=== PATIENT | male | born 1950 | race Caucasian/White ===

== ENCOUNTER 2019-05-10 18:55 | Emergency (ER) | payer OTHER, MEDICARE ==
[~2019-05-10] VITALS: Ht 180.3 cm; Wt 65.8 kg
[2019-05-10 20:08] LABS: BASOPHILS ABSOLUTE AUTO 0.05 K/mm3 (0.00-0.23); BASOPHILS PERCENT AUTO 0 % (0-2); EOSINOPHILS PERCENT AUTO 0 % (0-6); Hematocrit 50.1 % (37.0-53.0); Hemoglobin 17.5 g/dL (13.5-17.5); IMMATURE GRAN ABSOLUTE AUTO 0.04 K/mm3 (0.00-0.10); IMMATURE GRAN PERCENT AUTO 0 % (0-1); LYMPHOCYTES ABSOLUTE AUTO 1.73 K/mm3 (0.84-5.20); LYMPHOCYTES PERCENT AUTO 13 % (21-46); MONOCYTES ABSOLUTE AUTO 1.35 K/mm3 (0.16-1.47); MONOCYTES PERCENT AUTO 10 % (4-13); Mean Corpuscular HGB 33.8 pg (26.0-34.0); Mean Corpuscular HGB Conc 34.9 g/dL (31.5-36.5); Mean Corpuscular Volume 97 fL (80-100); Mean Platelet Volume 10.6 fL (9.1-12.4); NEUTROPHILS PERCENT AUTO 76 % (41-73); Platelet Count 229 K/mm3 (150-400); RDW Coefficient Variation 12.4 % (11.7-14.2); RDW Standard Deviation 44.6 fL (35.1-46.3); Red Blood Cell Count 5.18 M/mm3 (4.30-5.90); White Blood Cell Count 13.07 K/mm3 (4.00-11.30)
[2019-05-10] MEDS ORDERED: Metformin HCl750 MG PO (20:09)
[2019-05-10] MEDS ORDERED: CARV3.125 PO (20:10)
[2019-05-10] MEDS ORDERED: [UNRECOGNIZED DRUG - OTHER] PO (20:11)
[2019-05-10] MEDS ORDERED: METO25ER PO (20:12)
[2019-05-10] MEDS ORDERED: LORA.5 PO ×2 (20:12→21:38)
[2019-05-10] MEDS ORDERED: ATOR40TA PO (20:13)
[2019-05-10] MEDS ORDERED: GABA300 PO (20:13)
[2019-05-10 20:23] LABS: Alanine Aminotransfer (ALT/SGP 17 U/L (12-78); Albumin, Blood 3.7 g/dL (3.4-5.0); Albumin/Globulin Ratio 0.9 (0.8-1.8); Alk Phos 90 U/L (50-136); Anion Gap 9 mmol/L (6-16); Aspartate Aminotrans (AST/SGOT 14 U/L (12-37); Bilirubin, Total 0.8 mg/dL (0.1-1.0); Blood Urea Nitrogen 22 mg/dL (8-24); CO2, Blood 26 mmol/L (21-32); Calcium, Blood 9.2 mg/dL (8.5-10.1); Chloride, Blood 107 mmol/L (98-108); Globulin, Blood 3.9 g/dL (2.2-4.0); Glomerular Filtration Rate >60 (60-); Glucose, Blood 229 mg/dL (70-99); Potassium, Blood 4.1 mmol/L (3.5-5.5); Sodium, Blood 142 mmol/L (136-145); Total Protein, Blood 7.6 g/dL (6.4-8.2)
[2019-05-10] MEDS ORDERED: AMLO10 PO (21:38)
[2019-05-10] MEDS ORDERED: FUROSEMIDE20 MG PO (21:41)
[2019-05-10] MEDS ORDERED: K-Dur 20 meq T20 MEQ PO (21:42)
[2019-05-10] MEDS ORDERED: B-121000 MC2 PO (21:47)
[2019-05-10 22:05] LABS: Source, Urine Clean Catch
[2019-05-10 22:08] LABS: Appearance, Urine Clear (Clear); Bilirubin, Urine 1+ (Neg); Blood, Urine 2+ (Neg); Color, Urine Amber (P-Yellow); Glucose Qualitative, Urine Neg (Neg); Ketones, Urine 1+ (Neg); Leukocyte Esterase, Urine 2+ (Neg); Nitrite, Urine Pos (Neg); Protein, Urine 1+ (Neg); Urobilinogen, Urine 2+ (Normal)
[2019-05-10 22:13] LABS: Red Blood Cells, Urine 0-2 /hpf (0-2); Squamous Epithelial Cells Mod /hpf (Few)
[2019-05-10 22:14] LABS: Bacteria Mod /hpf
[2019-05-10] MEDS ORDERED: CEPH500 PO (23:26)
== END 2019-05-11 00:02 | disposition home or self-care (01) ==
LOC: ER 18:55
PROVIDERS: Physician Assistant
DX: N39.0 Urinary tract infection, site not specified (principal); E11.9 Type 2 diabetes mellitus without complications; Z79.899 Other long term (current) drug therapy; Z79.84 Long term (current) use of oral hypoglycemic drugs; Z86.73 Personal history of transient ischemic attack (TIA), and cerebral infarction without residual deficits; Z87.891 Personal history of nicotine dependence
CPT/HCPCS: 51701; 70450; 80053; 81001; 82947; 85025; 87086; 93005; 93010; 99284-25

== ENCOUNTER 2020-10-24 09:08 | Day surgery (SDC) | payer MEDICARE, OTHER ==
[~2020-10-24] VITALS: Ht 177.8 cm; Wt 66.1 kg
[~2020-10-24 09:08] MED LIST: AMLO5 PO; ATOR40TA PO; B-121000 MC2 PO; BACL10 PO; CARV3.125 PO; CEPH500 PO; FUROSEMIDE20 MG PO; GABA300 PO; K-Dur 20 meq T20 MEQ PO; LORA.5 PO; METO25ER PO; Metformin HCl750 MG PO; Norco 5-325 Ta1 EACH PO; PREG25 PO; SERT100 PO; [UNRECOGNIZED DRUG - OTHER] PO
--- NOTE | 2020-10-24 10:32 | NUR ---
Patient states colon prep results clear. History, Chart, Medications and Allergies reviewed before start of procedure.Lungs clear T/O to Auscultation. Patient confirms NPO status and agrees with scheduled surgery. Pre-Op teaching done. Pt verbalizes understanding. Patient states colon prep results clear.
--- NOTE | 2020-10-24 11:40 | NUR ---
10/24/20 1140 Dane Bosch History, Chart, Medications and Allergies reviewed before start of procedure. MONITOR INTACT WITH CONTINUOUS PULSE OXIMETRY AND INTERMITTENT BP. 3-LEAD EKG REVIEWED WITH PHYSICIAN PRIOR TO START OF PROCEDURE. O2 VIA N/C INTACT THROUGHOUT SEDATION/PROCEDURE. PATIENT DETERMINED TO BE ASA APPROPRIATE FOR PROPOFOL SEDATION PRIOR TO START OF PROCEDURE BY DR. VELASQUEZ.
== END 2020-10-24 12:35 | disposition home or self-care (01) ==
LOC: ORSCMMR 09:08 → ORD 10:00 → ORSCMMR 10:00
PROVIDERS: Internal Medicine Gastroenterology
PROC: 0DBK8ZX Excision of Ascending Colon, Via Natural or Artificial Opening Endoscopic, Diagnostic (ICD-10-PCS; principal; 2020-10-24 10:00)
PROC: 0DBH8ZX Excision of Cecum, Via Natural or Artificial Opening Endoscopic, Diagnostic (ICD-10-PCS; principal; 2020-10-24 10:00)
DX: Z12.11 Encounter for screening for malignant neoplasm of colon (principal); Z86.010 Personal history of colon polyps; D12.2 Benign neoplasm of ascending colon; D12.0 Benign neoplasm of cecum; I69.354 Hemiplegia and hemiparesis following cerebral infarction affecting left non-dominant side; E11.9 Type 2 diabetes mellitus without complications; I10 Essential (primary) hypertension; Z79.84 Long term (current) use of oral hypoglycemic drugs; Z79.899 Other long term (current) drug therapy
CPT/HCPCS: 82947; 88305; J2704; J7120

== ENCOUNTER 2022-10-08 20:27 | Observation (INO) | payer OTHER ==
[2022-10-08 20:54] LABS: BASOPHILS ABSOLUTE AUTO 0.05 K/mm3 (0.00-0.23); BASOPHILS PERCENT AUTO 0 % (0-2); EOSINOPHILS ABSOLUTE AUTO 0.25 K/mm3 (0.00-0.68); EOSINOPHILS PERCENT AUTO 2 % (0-6); IMMATURE GRAN ABSOLUTE AUTO 0.02 K/mm3 (0.00-0.10); IMMATURE GRAN PERCENT AUTO 0 % (0-1); LYMPHOCYTES ABSOLUTE AUTO 3.57 K/mm3 (0.84-5.20); LYMPHOCYTES PERCENT AUTO 32 % (21-46); MONOCYTES ABSOLUTE AUTO 1.25 K/mm3 (0.16-1.47); MONOCYTES PERCENT AUTO 11 % (4-13); Mean Corpuscular HGB Conc 35.7 g/dL (31.5-36.5); Mean Corpuscular Volume 92 fL (80-100); Mean Platelet Volume 10.1 fL (9.1-12.4); NEUTROPHILS ABSOLUTE AUTO 6.16 K/mm3 (1.96-9.15); NEUTROPHILS PERCENT AUTO 55 % (41-73); Platelet Count 249 K/mm3 (150-400); RDW Coefficient Variation 12.6 % (11.7-14.2); RDW Standard Deviation 42.8 fL (35.1-46.3); Red Blood Cell Count 4.55 M/mm3 (4.30-5.90)
[2022-10-08 21:07] LABS: Albumin, Blood 3.8 g/dL (3.4-5.0); Albumin/Globulin Ratio 1.2 (0.8-1.8); Bilirubin, Total 0.5 mg/dL (0.1-1.0); Bun/Creatinine Ratio 30.1 (12.0-20.0); Creatinine, Blood 0.8 mg/dL (0.60-1.20); Globulin, Blood 3.3 g/dL (2.2-4.0); Potassium, Blood 3.8 mmol/L (3.5-5.5); Total Protein, Blood 7.1 g/dL (6.4-8.2)
[2022-10-08 23:17] LABS: Thyroid Stimulating Hormone 1.16 uIU/mL (0.360-4.800)
[2022-10-08 23:41] LABS: Source, Urine Straight Cath
[2022-10-08 23:43] LABS: Bilirubin, Urine Neg (Neg); Blood, Urine Neg (Neg); Glucose Qualitative, Urine Neg (Neg); Ketones, Urine Neg (Neg); Leukocyte Esterase, Urine 2+ (Neg); Nitrite, Urine Neg (Neg); Protein, Urine 1+ (Neg); Urobilinogen, Urine NORM (Normal)
[2022-10-08 23:54] LABS: Appearance, Urine Clear (Clear); Color, Urine Yellow (P-Yellow)
[2022-10-08 23:56] LABS: Amorphous Light (0-Heavy); Bacteria Mod /hpf; Red Blood Cells, Urine Not Seen /hpf (0-2); Squamous Epithelial Cells Few /hpf (Few)
[2022-10-09 01:48] VITALS: BP 107/60
[2022-10-09 04:09] VITALS: BP 138/60
[2022-10-09 05:37] LABS: BASOPHILS ABSOLUTE AUTO 0.04 K/mm3 (0.00-0.23); BASOPHILS PERCENT AUTO 1 % (0-2); EOSINOPHILS ABSOLUTE AUTO 0.19 K/mm3 (0.00-0.68); EOSINOPHILS PERCENT AUTO 2 % (0-6); Hematocrit 38.2 % (37.0-53.0); Hemoglobin 13.6 g/dL (13.5-17.5); IMMATURE GRAN ABSOLUTE AUTO 0.02 K/mm3 (0.00-0.10); IMMATURE GRAN PERCENT AUTO 0 % (0-1); LYMPHOCYTES ABSOLUTE AUTO 2.46 K/mm3 (0.84-5.20); LYMPHOCYTES PERCENT AUTO 30 % (21-46); MONOCYTES ABSOLUTE AUTO 0.91 K/mm3 (0.16-1.47); MONOCYTES PERCENT AUTO 11 % (4-13); Mean Corpuscular HGB 33.5 pg (26.0-34.0); Mean Corpuscular HGB Conc 35.6 g/dL (31.5-36.5); Mean Corpuscular Volume 94 fL (80-100); Mean Platelet Volume 10.1 fL (9.1-12.4); NEUTROPHILS ABSOLUTE AUTO 4.53 K/mm3 (1.96-9.15); NEUTROPHILS PERCENT AUTO 56 % (41-73); Platelet Count 187 K/mm3 (150-400); RDW Coefficient Variation 12.8 % (11.7-14.2); RDW Standard Deviation 44.1 fL (35.1-46.3); Red Blood Cell Count 4.06 M/mm3 (4.30-5.90); White Blood Cell Count 8.15 K/mm3 (4.00-11.30)
[2022-10-09 06:02] LABS: Albumin, Blood 3.2 g/dL (3.4-5.0); Albumin/Globulin Ratio 1.1 (0.8-1.8); Bilirubin, Total 0.6 mg/dL (0.1-1.0); Bun/Creatinine Ratio 25.4 (12.0-20.0); Calcium, Blood 8.3 mg/dL (8.5-10.1); Creatinine, Blood 0.75 mg/dL (0.60-1.20); Globulin, Blood 2.9 g/dL (2.2-4.0); Magnesium, Blood 1.6 mg/dL (1.6-2.4); Potassium, Blood 3.4 mmol/L (3.5-5.5); Total Protein, Blood 6.1 g/dL (6.4-8.2)
[2022-10-09 07:13] VITALS: BP 104/49
[2022-10-09] MEDS ORDERED: ASPI81CH PO (11:57)
[2022-10-09] MEDS ORDERED: Amlodipine Bes2.5 MG PO (11:57)
== END 2022-10-09 13:03 | disposition home or self-care (01) ==
LOC: ER 20:27 → MEDS 20:28
PROVIDERS: Family Medicine; Student in an Organized Health Care Education/Training Program; ADMIT Student in an Organized Health Care Education/Training Program
DX: G45.9 Transient cerebral ischemic attack, unspecified (principal); E11.9 Type 2 diabetes mellitus without complications; I10 Essential (primary) hypertension; I69.354 Hemiplegia and hemiparesis following cerebral infarction affecting left non-dominant side; G47.00 Insomnia, unspecified; Z66 Do not resuscitate; Z79.84 Long term (current) use of oral hypoglycemic drugs; Z79.899 Other long term (current) drug therapy; Z87.891 Personal history of nicotine dependence
CPT/HCPCS: 36415; 70450; 70496; 70498; 80053; 81001; 82947; 83735; 84443; 85025; 87077; 87086; 87186; 93005; 93010; 99285-25; A9270; G0378; J7030; Q9967

== ENCOUNTER 2024-06-25 13:15 | Inpatient (IN) | payer OTHER ==
[~2024-06-25] VITALS: Ht 177.8 cm; Wt 61.7 kg
[~2024-06-25 13:15] MED LIST changes: +ACET500 PO; +AMBIEN5 MG PO; +ASPI81CH PO; +Amlodipine Bes2.5 MG PO; +B-12500 MC2 PO; +DIGOX125 MC1 PO; +DULO60 PO; +FARXIGA10 MG PO; +LIDO700A20 TOP; +MELOXICAM5 MG PO; +NALOXONE HCL4 MG; +Norco 7.5-3251 EACH PO; +TIZA4 PO; +XARELTO20 MG PO
[2024-06-25 14:21] LABS: BASOPHILS ABSOLUTE AUTO 0.04 K/mm3 (0.00-0.23); BASOPHILS PERCENT AUTO 0 % (0-2); EOSINOPHILS ABSOLUTE AUTO 0.03 K/mm3 (0.00-0.68); EOSINOPHILS PERCENT AUTO 0 % (0-6); Hematocrit 43.8 % (37.0-53.0); Hemoglobin 14.8 g/dL (13.5-17.5); IMMATURE GRAN ABSOLUTE AUTO 0.05 K/mm3 (0.00-0.10); IMMATURE GRAN PERCENT AUTO 1 % (0-1); LYMPHOCYTES ABSOLUTE AUTO 0.91 K/mm3 (0.84-5.20); LYMPHOCYTES PERCENT AUTO 9 % (21-46); MONOCYTES ABSOLUTE AUTO 0.95 K/mm3 (0.16-1.47); MONOCYTES PERCENT AUTO 9 % (4-13); Mean Corpuscular HGB 33.6 pg (26.0-34.0); Mean Corpuscular HGB Conc 33.8 g/dL (31.5-36.5); Mean Corpuscular Volume 99 fL (80-100); Mean Platelet Volume 9.6 fL (9.1-12.4); NEUTROPHILS ABSOLUTE AUTO 8.68 K/mm3 (1.96-9.15); NEUTROPHILS PERCENT AUTO 81 % (41-73); Platelet Count 281 K/mm3 (150-400); RDW Coefficient Variation 13.8 % (11.7-14.2); RDW Standard Deviation 50.8 fL (35.1-46.3); Red Blood Cell Count 4.41 M/mm3 (4.30-5.90); White Blood Cell Count 10.66 K/mm3 (4.00-11.30)
[2024-06-25 14:45] LABS: Albumin, Blood 3.5 g/dL (3.4-5.0); Albumin/Globulin Ratio 0.7 (0.8-1.8); Bilirubin, Total 0.8 mg/dL (0.1-1.0); Bun/Creatinine Ratio 33.3 (12.0-20.0); Calcium, Blood 9.8 mg/dL (8.5-10.1); Creatinine, Blood 1.23 mg/dL (0.60-1.20); Globulin, Blood 4.8 g/dL (2.2-4.0); Potassium, Blood 4.7 mmol/L (3.5-5.5); Total Protein, Blood 8.3 g/dL (6.4-8.2)
[2024-06-25 16:06] LABS: Source, Urine Clean Catch
[2024-06-25 16:13] LABS: Appearance, Urine Turbid (Clear); Bilirubin, Urine Neg (Neg); Blood, Urine 5+ (Neg); Color, Urine Yellow (P-Yellow); Glucose Qualitative, Urine 4+ (Neg); Ketones, Urine 2+ (Neg); Leukocyte Esterase, Urine 3+ (Neg); Nitrite, Urine Neg (Neg); Protein, Urine 3+ (Neg); Specific Gravity, Urine 1.015 (1.003-1.022); Urobilinogen, Urine NORM (Normal)
[2024-06-25 16:22] LABS: Bacteria Many /hpf; Squamous Epithelial Cells Not Seen /hpf (Few); White Blood Cells, Urine TNTC /hpf (0-5); Yeast/Fungi Urine Many /hpf
[2024-06-25 18:28] LABS: U Amphetamine Screen Not Detected; U Barbituate Screen Not Detected; U Benzodiazapine Screen Not Detected; U Buprenorphine Screen Not Detected; U Cannabinoids Screen Not Detected; U Cocaine Screen Not Detected; U Methadone Screen Not Detected; U Methamphetamine Screen Not Detected; U Opiates Screen DETECTED; U Oxycodone Screen Not Detected; U Phencyclidine Screen Not Detected
[2024-06-25 18:55] LABS: CORONAVIRUS COVID-19 AG Negative (NEGATIVE); INFLUENZA A AG Negative (NEGATIVE); INFLUENZA B AG Negative (NEGATIVE)
[2024-06-25] MEDS ORDERED: Ondansetron HCl 2 MG / ML 2ML Vial IV PRN (19:20)
[2024-06-25] MEDS ORDERED: FLU VACC TS2024-25(6MOS UP)/PF 45 MCG/0.5 ML SYRINGE IM SCH (19:20)
[2024-06-25] MEDS ORDERED: Meropenem 1,000 MG in NS 100 ML IV ONE (19:45)
[2024-06-25] MEDS ORDERED: NS 1,000 ML IV ONE (19:45)
[2024-06-25] MEDS ORDERED: NS 1,000 ML IV SCH (19:50)
[2024-06-25] MEDS ORDERED: Sod Phosphate/Sod Biphosphate 132 ML BTL PR ONE (20:10)
--- NOTE | 2024-06-25 20:40 | NUR ---
PT HERE VIA [facility] FROM ER. PT TRANSFERRED TO MEDICAL FLOOR BED. PT IS A&Ox4. 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 PT HAD A BM - CLEANED - SOFT BROWN. PT IS WHEELCHAIR BOUND AT BASELINE. CALL LIGHT REVIEWED WITH PT. BED ALARM ON FOR PT SAFETY.
[2024-06-25] MEDS ORDERED: MELO7.5 PO (20:56)
[2024-06-25] MEDS ORDERED: TAMS.4ER PO (20:57)
[2024-06-25] MEDS ORDERED: Lactobacil 2-S.Thermo-Bifido 1 1 Cap PO SCH (21:00)
[2024-06-25] MEDS ORDERED: Magnesium Hydroxide Conc 10 ML UDC PO ONE (21:00)
[2024-06-25 21:16] VITALS: BP 141/76
[2024-06-25] MEDS ORDERED: Mineral Oil 133 ML Enema PR ONE (22:00)
[2024-06-26] MEDS ORDERED: HYDROcodone 5-APAP 325 TAB PO PRN (00:20)
[2024-06-26] MEDS ORDERED: Zolpidem Tartrate 5 MG Tab PO PRN (00:20)
--- NOTE | 2024-06-26 00:40 | NUR ---
2108 IV NORMAL SALINE BAG - RESCANNED AND USED BAG BOLUS, IV BOLUS ON PT'S PROFILE - SEE EMAR FOR TIME IV NORMAL SALINE BOLUS WAS SCANNED. DION, RN BREAK NURSE SCANNED IV FLUIDS FOR IV MAINTENANCE DOSE OF NORMAL SALINE 100 CC/HOUR - THIS SAME BAG WAS USED FOR THE IV NORMAL SALINE BOLUS.
[2024-06-26 02:52] VITALS: BP 137/84
--- NOTE | 2024-06-26 04:41 | NUR ---
SHIFT SUMMARY - NO ACUTE CHANGES SINCE ADMIT LAST NOC. PT MEDICATED X1 FOR PAIN WITH GOOD RELIEF. PT HAS HAD SEVERAL BOWEL MOVEMENTS TONIGHT - SOFT BROWN STOOLS. PT IS WHEELCHAIR BOUND AT BASELINE. 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 SURGIGAL CONSULT IN PLACE. CALL LIGHT WITHIN REACH. BED ALARM ON FOR PT SAFETY. FLUIDS AT BEDSIDE. BED IN LOW POSIITON.
[2024-06-26 05:16] LABS: BASOPHILS ABSOLUTE AUTO 0.05 K/mm3 (0.00-0.23); BASOPHILS PERCENT AUTO 1 % (0-2); EOSINOPHILS ABSOLUTE AUTO 0.03 K/mm3 (0.00-0.68); EOSINOPHILS PERCENT AUTO 0 % (0-6); Hematocrit 37.9 % (37.0-53.0); Hemoglobin 12.8 g/dL (13.5-17.5); IMMATURE GRAN ABSOLUTE AUTO 0.06 K/mm3 (0.00-0.10); IMMATURE GRAN PERCENT AUTO 1 % (0-1); LYMPHOCYTES ABSOLUTE AUTO 1.01 K/mm3 (0.84-5.20); LYMPHOCYTES PERCENT AUTO 9 % (21-46); MONOCYTES ABSOLUTE AUTO 1.07 K/mm3 (0.16-1.47); MONOCYTES PERCENT AUTO 10 % (4-13); Mean Corpuscular HGB 33.6 pg (26.0-34.0); Mean Corpuscular HGB Conc 33.8 g/dL (31.5-36.5); Mean Corpuscular Volume 100 fL (80-100); Mean Platelet Volume 9.7 fL (9.1-12.4); NEUTROPHILS ABSOLUTE AUTO 8.47 K/mm3 (1.96-9.15); NEUTROPHILS PERCENT AUTO 79 % (41-73); Platelet Count 255 K/mm3 (150-400); Red Blood Cell Count 3.81 M/mm3 (4.30-5.90); White Blood Cell Count 10.69 K/mm3 (4.00-11.30)
[2024-06-26 05:56] LABS: Albumin, Blood 2.8 g/dL (3.4-5.0); Albumin/Globulin Ratio 0.7 (0.8-1.8); Bilirubin, Total 0.6 mg/dL (0.1-1.0); Calcium, Blood 8.7 mg/dL (8.5-10.1); Creatinine, Blood 0.97 mg/dL (0.60-1.20); Globulin, Blood 3.8 g/dL (2.2-4.0); Potassium, Blood 4.1 mmol/L (3.5-5.5); Total Protein, Blood 6.6 g/dL (6.4-8.2)
[2024-06-26] MEDS ORDERED: Meropenem 1,000 MG in NS 100 ML IV SCH (06:00)
[2024-06-26] MEDS ORDERED: Insulin Human Lispro 100 Units/ML 3ML Syringe SC SCH (07:30)
[2024-06-26 07:54] VITALS: BP 132/65
[2024-06-26] MEDS ORDERED: Carvedilol 6.25 MG Tab PO SCH (08:00)
[2024-06-26] MEDS ORDERED: Carvedilol 3.125 MG Tab PO SCH (08:00)
[2024-06-26] MEDS ORDERED: Docusate Sodium 100 MG Cap PO SCH (09:00)
[2024-06-26] MEDS ORDERED: Enoxaparin 40 MG/0.4 ML SYR SC SCH (09:00)
[2024-06-26] MEDS ORDERED: Tamsulosin HCl 0.4 MG Cap PO SCH (09:00)
[2024-06-26] MEDS ORDERED: AmLODIPine Besylate 5 MG Tab PO SCH (09:00)
[2024-06-26] MEDS ORDERED: DULoxetine HCL 60 MG Capsule DR PO SCH (09:00)
[2024-06-26] MEDS ORDERED: Polyethylene Glycol 3350 17 gm PO SCH (09:00)
[2024-06-26] MEDS ORDERED: Atorvastatin 40 MG Tab PO SCH (12:00)
[2024-06-26 15:38] VITALS: BP 108/60
[2024-06-26] MEDS ORDERED: Lactated Ringer's 1,000 ML IV SCH (15:40)
--- NOTE | 2024-06-26 17:58 | NUR ---
SHIFT SUMMARY CONFIRMED WITH DAY SURGERY THAT PATIENT WILL BE GOING FOR COLONOSCOPY THIS SHIFT, AWAITING SURGERY CREW. HAVING MULTIPLE BM, SOFT FORMED, MIXED CONTINENCE. A/O X4. TOLERATING FLUIDS AND ABX WELL. DID NOT TOLERATE CLEAR LIQUIDS THIS AM, PROJECTILE VOMITED, MEDICATED PER MAR. ABLE TO MAKE NEEDS KNOWN, CALL LIGHT IN REACH, CARES ONGOING.
[2024-06-26 19:33] VITALS: BP 113/59
--- NOTE | 2024-06-26 19:34 | NUR ---
History, Chart, Medications and Allergies reviewed before start of procedure. Pre-Op teaching done. Pt verbalizes understanding. Patient confirms NPO status and agrees with scheduled surgery. Lungs clear T/O to Auscultation.
[2024-06-26] MEDS ORDERED: propofoL 20 ML IV ONE ×2 (19:50→20:47)
--- NOTE | 2024-06-26 20:40 | NUR ---
06/26/242039 Bakari Mosley History, Chart, Medications and Allergies reviewed before start of procedure.MONITOR INTACT WITH CONTINUOUS PULSE OXIMETRY, CONTINUOUS END TITAL CO2, AND INTERMITTENT BLOOD PRESSURE.3-LEAD EKG REVIEWED WITH PHYSICIAN PRIOR TO START OF PROCEDURE.O2 VIA POM INTACT THROUGHOUT SEDATION/PROCEDURE.See Anesthesia record.
[2024-06-26] MEDS ORDERED: Protein Supplement 30 ML UD PO SCH (21:00)
[2024-06-26] MEDS ORDERED: Lactulose 20 GM/30 ML UDC PO SCH (21:00)
[2024-06-26] MEDS ORDERED: Arginine/Glutamine/Calcium Hmb 1 Packet PO SCH (21:00)
[2024-06-26 21:18] VITALS: BP 106/58
[2024-06-26 21:34] VITALS: BP 106/59
--- NOTE | 2024-06-26 22:48 | NUR ---
@2119, Pt retured from scheduled Colonoscopy-which was cancelled d/t large amount of stool in the pt's colon. Bakari HERNANDEZ gave a bedside report to MARY Olivier Break Nurse. [facility], see emar. Soapsud enemas are ordered q8hrs.
--- NOTE | 2024-06-27 03:17 | NUR ---
SHIFT SUMMARY PT IS A/O X3-4, ABLE TO MAKE HIS NEEDS KNOWN AND COOPERATIVE WITH CARE. @SHIFT CHANGE PT TAKEN TO DAY SURGERY FOR SCHEDULED COLONOSCOPY. COLONOSCOPY WAS CANCELLED D/T LRG.AMOUNTS OF STOOL IN THE COLON. PT RETURNED TO MEDICAL FLOOR @2119, AND MARY TUCKER GAVE A BEDSIDE REPORT TO BREAK NURSE SUMMER Win. PT ALERT AND ORIENTED IN THE HOSPITAL ROOM, SOILED ATTENDS WITH SML. HARD STOOL PARTICLES IN THE ATTENDS. NEW ORDER FOR LACTULOSE WAS ADMINISTERED ORDERED. NEW ORDER FOR SOAP ARISTEO EMENA (Q8HRS) WAS ADMINISTERED @MIDNIGHT. MEDIUM FORMED STOOL IN THE BEDPAN. URINAL BY THE BEDSIDE, PT ABLE TO USE WITH HELP. PT CONTINUES IN BEDREST. PT DENIES PAIN AND DISCOMFORT DURING THIS SHIFT. VSS. NO ACUTE CHANGES/DISTRESS DURING THIS SHIFT. BED AT THE LOWEST POSITION, CALL LIGHT W/I REACH.
[2024-06-27 05:28] VITALS: BP 123/61
[2024-06-27 07:24] VITALS: BP 127/59
[2024-06-27] MEDS ORDERED: Aspirin 81 MG Chew PO SCH (09:00)
[2024-06-27 13:44] LABS: Source, Urine Clean Catch
[2024-06-27 13:56] LABS: Appearance, Urine Cloudy (Clear); Bilirubin, Urine Neg (Neg); Blood, Urine 5+ (Neg); Glucose Qualitative, Urine 4+ (Neg); Ketones, Urine 4+ (Neg); Leukocyte Esterase, Urine 3+ (Neg); Nitrite, Urine Neg (Neg); Protein, Urine 2+ (Neg); Specific Gravity, Urine 1.015 (1.003-1.022); Urobilinogen, Urine NORM (Normal)
[2024-06-27 13:58] LABS: Color, Urine Pale Yellow (P-Yellow)
[2024-06-27 13:59] LABS: White Blood Cells, Urine 50-100 /hpf (0-5)
[2024-06-27 14:00] LABS: Bacteria Mod /hpf; Yeast/Fungi Urine Many /hpf
[2024-06-27 14:01] LABS: Squamous Epithelial Cells Rare /hpf (Few); Transitional Epithelial Cells Rare /hpf (0-Rare)
[2024-06-27 15:28] VITALS: BP 109/58
--- NOTE | 2024-06-27 18:06 | NUR ---
SHIFT SUMMARY PATIENT IN BED THIS SHIFT. LETHARGIC MOST OF SHIFT, SLEEPING THROUGHOUT THE DAY. RECEIVED 2 ENEMAS, EXTRA LARGE BM, HYPERACTIVE BOWEL TONES. TOLERATING PO MEDS WELL. ONE EPISODE OF MILD NAUSEA. INCONTINENT OF URINE. SKIN TO CHARLIE AREA LOOKING MILDLY EXCORIATED, BARRIER CREAM APPLIED WITH EACH BM EPISODE, CHARLIE CARE PERFORMED AND SKIN DRIED. URINE SENT FOR ANALYSIS, WILL AWAIT CX RESULTS. CALL LIGHT IN REACH, ABLE TO MAKE NEEDS KNOWN. CARES ONGOING.
[2024-06-27 19:54] VITALS: BP 142/75
[2024-06-27] MEDS ORDERED: ACET500 PO (22:15)
[2024-06-27] MEDS ORDERED: SULFAMETHOXAZO1 EAC1 PO (22:33)
[2024-06-28 02:47] VITALS: BP 141/62
--- NOTE | 2024-06-28 03:05 | NUR ---
SHIFT SUMMARY PT IS A/O X3-4, SLEEPY, PRN AMBIEN ADMINISTERED ORDERED @HS PER PT REQUEST. NEW IV PLACED TO RIGHT FOREARM, PT TOLERATED WELL. MULTIPLE XTRA LARGE LOOSE STOOLS DURING THIS SHIFT. INCONTINENT OF URINE AND STOOL. ATTENDS IN PLACE. PT PUTS HIS RIGHT HAND DOWN TO PERIAREA, SOILING HIS HAND WITH THE STOOL. REDIRECTED MULTIPLE TIMES. PT ABLE TO REQUEST A URINAL AND VOID WITH ASSISTANCE. REPOSITIONED Q2HRS, COCCYX FLOATED WITH PILLOWS. SOME REDDNESS NOTED, SKIN INTACT. PT REPORTS MISSING HIS DOG AND WOULD LIKE TO D/C TO HOME SOON. PT DENIES PAIN. NS INFUSING @100MLS/HR ORDERED. NO ACUTE EVENTS DURING THIS SHIFT. BED AT THE LOWEST POSITION, Q5-10 MINUTE CHECKS BY THE BEDSIDE D/T PT'S HAND AT THE PERIAREA. CALL LIGHT W/I REACH. PT IS ABLE TO MAKE HIS NEEDS KNOWN AND IS COOPERATIVE WITH CARE.
[2024-06-28 06:29] LABS: Bun/Creatinine Ratio 43.1 (12.0-20.0); Calcium, Blood 8.7 mg/dL (8.5-10.1); Creatinine, Blood 0.79 mg/dL (0.60-1.20); Potassium, Blood 3.2 mmol/L (3.5-5.5)
[2024-06-28 07:24] VITALS: BP 124/60
[2024-06-28] MEDS ORDERED: Potassium Chloride 20 MEQ TabCR PO ONE ×2 (07:40→10:20)
[2024-06-28 17:06] VITALS: BP 132/75
[2024-06-28 17:13] VITALS: BP 142/78
--- NOTE | 2024-06-28 18:27 | NUR ---
PT PLEASANT TODAY. PAIN MANAGED WITH AVAIL MEDS . MORE ALERT AFTER NOON TODAY. VSS. 5 B/M LISTED TODAY. LACTULOSE D/C TODAY. LEFT SIDE FLACID R/T PRIOR STROKE. TALKING AND EATING. DID HAVE EMESIS THIS NATHEN X1. NO OTHER CONCERNS NOTED TODAY.BED IN LOW POSITIOIN,, CALL LITE IN REACH, CALLS APPROP
[2024-06-28] MEDS ORDERED: Docusate Sodium 100 MG Cap PO SCH (21:00)
[2024-06-28 21:35] VITALS: BP 128/66
--- NOTE | 2024-06-29 04:20 | NUR ---
SHIFT SUMMARY: Pt is admitted for UTI and is a full code. Is alert and able to make most needs known. ADLs have been mostly 2p. Denies pain or discomfort when asked. Iv it right bicep has been running NS at 100ml/h. Urine has been a mix of yellow and milk in color.
[2024-06-29 05:37] LABS: Bun/Creatinine Ratio 51.4 (12.0-20.0); Calcium, Blood 8.8 mg/dL (8.5-10.1); Creatinine, Blood 0.6 mg/dL (0.60-1.20); Magnesium, Blood 1.6 mg/dL (1.6-2.4); Potassium, Blood 3.4 mmol/L (3.5-5.5)
[2024-06-29 07:49] VITALS: BP 124/65
[2024-06-29] MEDS ORDERED: TiZANidine HCl 4 MG Tab PO PRN (16:10)
[2024-06-29] MEDS ORDERED: Potassium Chloride 20 MEQ TabCR PO ONE (17:00)
--- NOTE | 2024-06-29 18:41 | NUR ---
SUMMARY PT IS ALERT AND ORIENTED X2 AT THE END OF SHIFT. ORIENTATION WAX AND WANE PT FAMILY REPORTS PT IS HALLUCINATING, MD AWARE, PT RIGHT ARM INFILTRATE X2, BRUISE AND SWELLING NOTED, COMPRESS AND ELEVATED. POWER GLIDE NOW IN PLACE. IV FLUIDS AND IV ANTIBIOTICS CONTINUED. BED REST. RA
[2024-06-29 19:15] VITALS: BP 105/59
--- NOTE | 2024-06-30 05:10 | NUR ---
SHIFT SUMMARY PT ALERT ORIENTED TO SELF WITH CONFUSION ABLE TO VERBALIZE NEEDS HE HAS EPISODES OF HALLUCINATIONS. POWER GLIDE INTACT TO RT UPPER ARM WITH NS AT 100. HIS RT ARM REMAINS SWOLLEN AND BRUISED R/T IVS INFILTRATING. HES INC OF B&B AND KEEPS REMOVING HIS BRIEFS AND URINATING ON HIS BED. HES KEPT TURNED AND REPOSITIONED BY STAFF. NO C/O PAIN THIS SHIFT. REMAINS ON MEROPENEM FOR UTI. HE WAS HAVING A HARD TIME GOING TO SLEEP AND MEDICATED WITH AMBIEN AND HE SLEPT MOST OF THE NIGHT. VSS ON RA SATTING AT 96%. RESTING IN BED AT THIS TIME WITH CALL LIGHT IN [facility]
[2024-06-30 06:03] LABS: Hematocrit 40.3 % (37.0-53.0); Hemoglobin 13.1 g/dL (13.5-17.5); Mean Corpuscular HGB Conc 32.5 g/dL (31.5-36.5); Mean Corpuscular Volume 102 fL (80-100); Mean Platelet Volume 9.7 fL (9.1-12.4); Platelet Count 210 K/mm3 (150-400); RDW Coefficient Variation 13.4 % (11.7-14.2); RDW Standard Deviation 50.4 fL (35.1-46.3); Red Blood Cell Count 3.97 M/mm3 (4.30-5.90); White Blood Cell Count 8.13 K/mm3 (4.00-11.30)
[2024-06-30 06:42] LABS: Calcium, Blood 8.9 mg/dL (8.5-10.1); Creatinine, Blood 0.62 mg/dL (0.60-1.20); Potassium, Blood 3.7 mmol/L (3.5-5.5)
[2024-06-30 07:22] VITALS: BP 170/68
[2024-06-30] MEDS ORDERED: Melatonin 5 MG Tablet PO PRN (08:40)
[2024-06-30 09:00] VITALS: BP 135/71
[2024-06-30 17:42] VITALS: BP 127/61
--- NOTE | 2024-06-30 18:18 | NUR ---
SHIFT SUMMARY PATIENT A/OX4 THIS SHIFT, ABLE TO MAKE NEEDS KNOWN. CALLS APPROPRIATELY. SBP ELEVATED THIS MORNING AT 170, RECHECKED 1 HOUR LATER AND RETURNED TO 130s AFTER BLOOD PRESSURE MEDICATIONS ADMINISTERED. PATIENT WITH ONE EPISODE OF EMESIS, ZOFRAN ADMINISTERED X2 TODAY. PATIETN ALSO COMPLAINING OF PAIN TO BACK, NORCO ADMINISTERED X2 THIS SHIFT. ABDOMINAL X RAY OBTAINED TODAY. PATIENT WITH TWO SMALL SOFT BOWEL MOVEMENTS. CONTINUES WITH Q2HOUR REPOSITIONING. NO OTHER CONCERNS AT THIS TIME.
[2024-06-30 20:16] VITALS: BP 112/56
[2024-06-30 20:17] VITALS: BP 112/56
[2024-07-01 03:48] VITALS: BP 122/76
--- NOTE | 2024-07-01 04:32 | NUR ---
Pt A&O x4, VS WNL, urinal at bedside with independent use, does spill urinal so has incontinent brief on to catch urine. Pt with NS running at 100mls/hr. BG 256 this HS covered with SSI. Pt awake most of night, repositioned per staff although he can turn self from side to side to assist staff., Awaiting OT eval although he did refuse PT eval on 06/30. D/C plan home with HH.
[2024-07-01 05:32] LABS: Bun/Creatinine Ratio 51.1 (12.0-20.0); Calcium, Blood 8.4 mg/dL (8.5-10.1); Creatinine, Blood 0.63 mg/dL (0.60-1.20); Potassium, Blood 3.5 mmol/L (3.5-5.5)
[2024-07-01 07:28] VITALS: BP 132/76
[2024-07-01] MEDS ORDERED: Sennosides 8.6 MG Tab PO STA (08:24)
[2024-07-01] MEDS ORDERED: DOCU100 PO (11:51)
[2024-07-01] MEDS ORDERED: ASPI81CH PO (11:51)
[2024-07-01] MEDS ORDERED: JUVEN PACKET1 EAC3 PO (11:51)
[2024-07-01] MEDS ORDERED: MELATONIN5 M1 PO (11:52)
[2024-07-01] MEDS ORDERED: LIQUICAL PLUS480 ML PO (11:52)
[2024-07-01] MEDS ORDERED: MIRALAX17 GM PO (11:52)
[2024-07-01] MEDS ORDERED: TAMS.4ER PO (11:53)
--- NOTE | 2024-07-01 14:35 | NUR ---
DISCHARGE NOTE PATIENT A/OX4, ABLE TO MAKE NEEDS KNOWN. PLEASANT AND COOPERATIVE WITH CARE. IV TO RIGHT HAND REMOVED PRIOR TO DISCHARGE. PATIENT COMPLAINING OF BACK PAIN THIS MORNING AND PRN PAIN MEDICATION ADMINISTERED PER JUL. ALSO COMPLAINING OF NAUSEA WITH BREAKFAST AND PRN ZOFRAN ADMINISTERED. PARTICIPATED IN PHYSICAL THERAPY TODAY AND REMAINS AT BASELINE FUNCTIONING, STAND PIVOT ASSIST 1 PERSON. DISCHARGE MEDICATIONS DISCUSSED WITH PATIENT AND SON IN LAW AND IMPORTANCE OF TAKING MEDICATIONS PRESCRIBED WAS DISCUSSED. PER SON IN LAW, DARLYN, PATIENT TAKES 4 NORCO AT A TIME AT HOME AND "NEVER HAS ENOUGH TO MAKE IT TO HIS NEXT PRESCRIPTION FILL". PATIENT EDUCATED THOUROGHLY REGARDING PRESCRIPTION PAIN MEDICATION AND FOLLOWING PRESCRIBED DOSE AND FREQUENCY. INFORMED THAT COULD EXACERBATE CONSTIPATION WELL. PATIENT STATED UNDERSTANDING. NEW MEDICATIONS FAXED TO [facility] PER PATIENT REQUEST. NO OTHER CONCERNS AT THIS TIME. PATIENT ASSISTED TO FAMILY VEHICLE VIA WHEELCHAIR BY [facility] STAFF.
== END 2024-07-01 14:23 | disposition home health service (06) | DRG 388 ==
LOC: ER 13:15 → MEDS 13:16 → ERHOLD 13:16 → MEDS 20:56 → ENPENDDIS 07-01 12:17 → MEDS 07-01 14:23
PROVIDERS: Emergency Medicine; Internal Medicine; Nurse Practitioner Acute Care; Student in an Organized Health Care Education/Training Program; Surgery; ADMIT Internal Medicine
PROC: 0DCP7ZZ Extirpation of Matter from Rectum, Via Natural or Artificial Opening (ICD-10-PCS; principal; 2024-06-26 17:00)
DX: K56.41 Fecal impaction (principal); E43 Unspecified severe protein-calorie malnutrition; G92.8 Other toxic encephalopathy; F11.20 Opioid dependence, uncomplicated; I69.354 Hemiplegia and hemiparesis following cerebral infarction affecting left non-dominant side; N13.30 Unspecified hydronephrosis; Z68.1 Body mass index [BMI] 19.9 or less, adult; K52.89 Other specified noninfective gastroenteritis and colitis; E87.6 Hypokalemia; E11.22 Type 2 diabetes mellitus with diabetic chronic kidney disease; N40.0 Benign prostatic hyperplasia without lower urinary tract symptoms; N18.30 Chronic kidney disease, stage 3 unspecified; G89.4 Chronic pain syndrome; E78.5 Hyperlipidemia, unspecified; G47.33 Obstructive sleep apnea (adult) (pediatric); I12.9 Hypertensive chronic kidney disease with stage 1 through stage 4 chronic kidney disease, or unspecified chronic kidney disease; G47.00 Insomnia, unspecified; I48.91 Unspecified atrial fibrillation; F32.A Depression, unspecified; Z87.891 Personal history of nicotine dependence; Z90.79 Acquired absence of other genital organ(s); Z85.46 Personal history of malignant neoplasm of prostate
CPT/HCPCS: 36415; 70450; 71045; 74018; 74177; 80048; 80053; 81001; 82140; 82947; 83605; 83735; 84443; 85025; 85027; 87040; 87086; 87106; 87428-QW; 93005; 93010; 96361; 96365; 96366; 96375; 96376; 97110; 97161; 97530; 99285-25; A9270; G0378; J1650; J2185; J2405; J2704; J7030; J7120; Q9967

== ENCOUNTER 2024-07-10 14:09 | Emergency (ER) | payer OTHER ==
[~2024-07-10] VITALS: Ht 180.3 cm; Wt 61.2 kg
[~2024-07-10 14:09] MED LIST changes: +DOCU100 PO; +JUVEN PACKET1 EAC3 PO; +LIQUICAL PLUS480 ML PO; +MELATONIN5 M1 PO; +MELO7.5 PO; +MIRALAX17 GM PO; +SULFAMETHOXAZO1 EAC1 PO; +TAMS.4ER PO
[2024-07-10] MEDS ORDERED: Ondansetron HCl 2 MG / ML 2ML Vial IV ONE (14:30)
[2024-07-10 14:51] LABS: Source, Urine Voided
[2024-07-10] MEDS ORDERED: NS 1,000 ML IV SCH ×5 (15:15→22:10)
[2024-07-10 15:16] LABS: Appearance, Urine Cloudy (Clear); Bilirubin, Urine Neg (Neg); Blood, Urine 4+ (Neg); Color, Urine Yellow (P-Yellow); Glucose Qualitative, Urine 4+ (Neg); Ketones, Urine Neg (Neg); Leukocyte Esterase, Urine 3+ (Neg); Nitrite, Urine Neg (Neg); Protein, Urine 3+ (Neg); Urobilinogen, Urine NORM (Normal)
[2024-07-10 15:17] LABS: BASOPHILS ABSOLUTE AUTO 0.04 K/mm3 (0.00-0.23); BASOPHILS PERCENT AUTO 0 % (0-2); EOSINOPHILS ABSOLUTE AUTO 0.01 K/mm3 (0.00-0.68); EOSINOPHILS PERCENT AUTO 0 % (0-6); Hematocrit 19.2 % (37.0-53.0); Hemoglobin 6.6 g/dL (13.5-17.5); IMMATURE GRAN ABSOLUTE AUTO 0.12 K/mm3 (0.00-0.10); IMMATURE GRAN PERCENT AUTO 1 % (0-1); LYMPHOCYTES ABSOLUTE AUTO 0.96 K/mm3 (0.84-5.20); LYMPHOCYTES PERCENT AUTO 5 % (21-46); MONOCYTES ABSOLUTE AUTO 0.83 K/mm3 (0.16-1.47); MONOCYTES PERCENT AUTO 4 % (4-13); Mean Corpuscular HGB 34.6 pg (26.0-34.0); Mean Corpuscular HGB Conc 34.4 g/dL (31.5-36.5); Mean Corpuscular Volume 101 fL (80-100); Mean Platelet Volume 8.9 fL (9.1-12.4); NEUTROPHILS ABSOLUTE AUTO 17.82 K/mm3 (1.96-9.15); NEUTROPHILS PERCENT AUTO 90 % (41-73); Platelet Count 374 K/mm3 (150-400); RDW Coefficient Variation 15.9 % (11.7-14.2); RDW Standard Deviation 55.6 fL (35.1-46.3); Red Blood Cell Count 1.91 M/mm3 (4.30-5.90); White Blood Cell Count 19.78 K/mm3 (4.00-11.30)
[2024-07-10 15:28] LABS: Bacteria Mod /hpf; Red Blood Cells, Urine 25-50 /hpf (0-2); Squamous Epithelial Cells Not Seen /hpf (Few); White Blood Cells, Urine TNTC /hpf (0-5)
[2024-07-10 15:43] LABS: Albumin, Blood 2.3 g/dL (3.4-5.0); Albumin/Globulin Ratio 0.7 (0.8-1.8); Bilirubin, Total 0.5 mg/dL (0.1-1.0); Bun/Creatinine Ratio 68.3 (12.0-20.0); Calcium, Blood 7.8 mg/dL (8.5-10.1); Creatinine, Blood 1.04 mg/dL (0.60-1.20); Globulin, Blood 3.1 g/dL (2.2-4.0); Potassium, Blood 3.9 mmol/L (3.5-5.5); Total Protein, Blood 5.4 g/dL (6.4-8.2)
[2024-07-10] MEDS ORDERED: Diltiazem HCl 5 MG / ML 5ML Vial IV ONE (16:05)
[2024-07-10] MEDS ORDERED: CARVEDILOL6.25 MG PO (16:10)
[2024-07-10] MEDS ORDERED: ZOLP5 PO (16:10)
[2024-07-10] MEDS ORDERED: NS 1,000 ML IV ONE ×3 (16:28→20:07)
[2024-07-10] MEDS ORDERED: CefTRIAXone Sodium 1,000 MG in NS 50 ML IV ONE (18:40)
[2024-07-10] MEDS ORDERED: Pantoprazole Sodium 40 MG Injection IV ONE ×2 (18:40→20:00)
[2024-07-10] MEDS ORDERED: Metoclopramide HCl 5MG / ML 2ML Vial IV ONE (18:40)
[2024-07-10] MEDS ORDERED: Digoxin 0.25 MG/ML 2ML Amp IV SCH (19:00)
[2024-07-10] MEDS ORDERED: Metoclopramide HCl 5MG / ML 2ML Vial IV PRN (19:20)
[2024-07-10 19:21] LABS: Hematocrit 22.2 % (37.0-53.0); Hemoglobin 7.3 g/dL (13.5-17.5)
[2024-07-10] MEDS ORDERED: FLU VACC TS2024-25(6MOS UP)/PF 45 MCG/0.5 ML SYRINGE IM SCH (19:25)
[2024-07-10] MEDS ORDERED: Phenylephrine HCl in 0.9% NaCl 250 ML IV SCH (19:50)
[2024-07-10] MEDS ORDERED: Polyethylene Glycol 3350 17 gm PO ONE (20:00)
[2024-07-10] MEDS ORDERED: Piperacillin/Tazobactam Sod 3.375 GM in NS 100 ML IV SCH (20:00)
[2024-07-10] MEDS ORDERED: Piperacillin/Tazobactam Sod 3.375 GM in NS 100 ML IV ONE (20:05)
[2024-07-10] MEDS ORDERED: Docusate Sodium 100 MG Cap PO SCH (21:00)
[2024-07-10] MEDS ORDERED: Sennosides 8.6 MG Tab PO SCH (21:00)
[2024-07-10 22:40] VITALS: BP 103/68
[2024-07-11] MEDS ORDERED: Insulin Human Lispro 100 Units/ML 3ML Syringe SC SCH
[2024-07-11] MEDS ORDERED: Pantoprazole Sodium 40 MG Injection IV SCH (06:00)
[2024-07-11] MEDS ORDERED: Atorvastatin 40 MG Tab PO SCH (09:00)
[2024-07-11] MEDS ORDERED: Tamsulosin HCl 0.4 MG Cap PO SCH (09:00)
[2024-07-11] MEDS ORDERED: Aspirin 81 MG Chew PO SCH (09:00)
== END 2024-07-10 22:42 | disposition short-term general hospital (02) ==
LOC: ER 14:09
PROVIDERS: Emergency Medicine; Nurse Practitioner Acute Care
DX: A41.9 Sepsis, unspecified organism (principal); K92.2 Gastrointestinal hemorrhage, unspecified; K62.89 Other specified diseases of anus and rectum; I48.91 Unspecified atrial fibrillation; Z79.899 Other long term (current) drug therapy; Z79.84 Long term (current) use of oral hypoglycemic drugs; Z79.02 Long term (current) use of antithrombotics/antiplatelets; Z79.82 Long term (current) use of aspirin; Z79.83 Long term (current) use of bisphosphonates; Z87.891 Personal history of nicotine dependence
CPT/HCPCS: 36415; 36430; 36620; 71045; 74177; 80053; 81001; 82947; 83605; 83690; 83880; 84145; 85014; 85018; 85025; 86850; 86900; 86901; 86923; 87040; 87077; 87086; 87106; 93005; 93010; 96361-59; 96365-59; 96375-59; 96376-59; 99285-25; A9270; J0696; J1160; J2371; J2405; J2470; J2543; J2765; J7030; P9016; Q9967

== ENCOUNTER 2024-10-15 00:46 | Inpatient (IN) | payer OTHER ==
[~2024-10-15] VITALS: Ht 165.1 cm; Wt 61.1 kg
[~2024-10-15 00:46] MED LIST changes: -TIZA4 PO; +TIZANIDINE HCL2 M1 PO; +ZOLP5 PO
[2024-10-15] MEDS ORDERED: Acetaminophen 500 MG Tab PO ONE (01:30)
[2024-10-15] MEDS ORDERED: NS 1,000 ML IV SCH (01:30)
[2024-10-15 02:20] LABS: BASOPHILS ABSOLUTE AUTO 0.03 K/mm3 (0.00-0.23); BASOPHILS PERCENT AUTO 0 % (0-2); EOSINOPHILS ABSOLUTE AUTO 0.02 K/mm3 (0.00-0.68); EOSINOPHILS PERCENT AUTO 0 % (0-6); Hematocrit 42.8 % (37.0-53.0); IMMATURE GRAN ABSOLUTE AUTO 0.02 K/mm3 (0.00-0.10); IMMATURE GRAN PERCENT AUTO 0 % (0-1); LYMPHOCYTES ABSOLUTE AUTO 0.48 K/mm3 (0.84-5.20); LYMPHOCYTES PERCENT AUTO 5 % (21-46); MONOCYTES ABSOLUTE AUTO 0.41 K/mm3 (0.16-1.47); MONOCYTES PERCENT AUTO 5 % (4-13); Mean Corpuscular HGB 29.4 pg (26.0-34.0); Mean Corpuscular HGB Conc 32.7 g/dL (31.5-36.5); Mean Corpuscular Volume 90 fL (80-100); Mean Platelet Volume 9.9 fL (9.1-12.4); NEUTROPHILS ABSOLUTE AUTO 8.16 K/mm3 (1.96-9.15); NEUTROPHILS PERCENT AUTO 90 % (41-73); Platelet Count 250 K/mm3 (150-400); RDW Standard Deviation 45.8 fL (35.1-46.3); Red Blood Cell Count 4.76 M/mm3 (4.30-5.90); White Blood Cell Count 9.12 K/mm3 (4.00-11.30)
[2024-10-15 03:06] LABS: Influenza A, PCR NEGATIVE (NEGATIVE); Influenza B, PCR NEGATIVE (NEGATIVE); Resp Syncytial Virus, PCR NEGATIVE (NEGATIVE); SARS-Cov-2 (COVID-19) PCR, MMC NEGATIVE (NEGATIVE)
[2024-10-15 03:44] LABS: Magnesium, Blood 1.3 mg/dL (1.6-2.4)
[2024-10-15 03:56] LABS: Albumin, Blood 3.5 g/dL (3.4-5.0); Albumin/Globulin Ratio 0.9 (0.8-1.8); Bilirubin, Total 0.5 mg/dL (0.1-1.0); Calcium, Blood 9.1 mg/dL (8.5-10.1); Creatinine, Blood 0.69 mg/dL (0.60-1.20); Globulin, Blood 3.9 g/dL (2.2-4.0); Potassium, Blood 3.9 mmol/L (3.5-5.5); Total Protein, Blood 7.4 g/dL (6.4-8.2)
[2024-10-15] MEDS ORDERED: Magnesium Sulf 2 GM/Water 50ML 50 ML IV ONE (04:05)
[2024-10-15 05:51] LABS: Source, Urine Straight Cath
[2024-10-15 05:53] LABS: Appearance, Urine Clear (Clear); Bilirubin, Urine Neg (Neg); Blood, Urine 1+ (Neg); Color, Urine Yellow (P-Yellow); Glucose Qualitative, Urine Neg (Neg); Ketones, Urine 2+ (Neg); Leukocyte Esterase, Urine 3+ (Neg); Nitrite, Urine Neg (Neg); Protein, Urine 3+ (Neg); Specific Gravity, Urine 1.015 (1.003-1.022); Urobilinogen, Urine NORM (Normal)
[2024-10-15 06:06] LABS: White Blood Cells, Urine 50-100 /hpf (0-5)
[2024-10-15 06:08] LABS: Squamous Epithelial Cells Rare /hpf (Few)
[2024-10-15 06:10] LABS: Bacteria Few /hpf; Yeast/Fungi Urine Mod /hpf
[2024-10-15] MEDS ORDERED: CefTRIAXone Sodium 1,000 MG in NS 50 ML IV ONE (06:40)
[2024-10-15] MEDS ORDERED: Polyethylene Glycol 3350 17 gm PO PRN (07:35)
[2024-10-15] MEDS ORDERED: Magnesium Hydroxide Conc 10 ML UDC PO PRN (07:35)
[2024-10-15] MEDS ORDERED: Enoxaparin 40 MG/0.4 ML SYR SC SCH (09:00)
[2024-10-15] MEDS ORDERED: Lactobacil 2-S.Thermo-Bifido 1 1 Cap PO SCH (09:00)
[2024-10-15] MEDS ORDERED: Sennosides 8.6 MG Tab PO SCH (09:00)
[2024-10-15 09:38] VITALS: BP 129/73
[2024-10-15] MEDS ORDERED: Polyethylene Glycol 3350 17 gm PO SCH (12:00)
[2024-10-15] MEDS ORDERED: Lactated Ringer's 1,000 ML IV ONE (13:00)
[2024-10-15] MEDS ORDERED: Metformin HCl750 MG PO (13:21)
[2024-10-15] MEDS ORDERED: Lactulose 20 GM/30 ML UDC PO SCH (14:00)
[2024-10-15] MEDS ORDERED: Acetaminophen 500 MG Tab PO PRN (14:05)
[2024-10-15] MEDS ORDERED: Bisacodyl 10 MG Supp PR PRN (14:05)
[2024-10-15] MEDS ORDERED: Melatonin 5 MG Tablet PO PRN (14:05)
[2024-10-15] MEDS ORDERED: HYDROcodone 7.5-APAP 325 TAB PO PRN (14:05)
[2024-10-15] MEDS ORDERED: Lactated Ringer's 1,000 ML IV SCH (15:00)
--- NOTE | 2024-10-15 15:00 | NUR ---
THIS RN PERFORMED BEDSIDE SWALLOW EVAL WITH PT. PT DID NOT TOLERATE WELL. THIS RN NOTIFIED . PROVIDER TO PUT IN ORDER FOR ST.
[2024-10-15 15:06] VITALS: BP 149/72
--- NOTE | 2024-10-15 17:38 | NUR ---
SHIFT SUMMARY PT A&O TO SELF/PERSON ONLY, CONFUSED, VSS, AND BEDRIDDEN AT THIS TIME. THIS RN PERFORMED BEDSIDE SWALLOW EVAL AND PT DID NOT TOLERATE WELL. THIS RN NOTIFIED PROVIDER, SEE PREVIOUS NOTE. PT WAS SLOW TO FOLLOW DIRECTION, DELAYED SWALLOW, AND COUGHED W/ THIN AND THICKENED LIQUIDS. PT REMAINS NPO AT THIS TIME AWAITING ST EVAL. LR CONT TO INFUSE PER ORDER. CALL LIGHT WITHIN REACH, BED ALARM ON FOR SAFETY.
[2024-10-15] MEDS ORDERED: Insulin Human Lispro 100 Units/ML 3ML Syringe SC SCH (18:00)
[2024-10-15 19:30] VITALS: BP 139/81
[2024-10-15] MEDS ORDERED: Atorvastatin 40 MG Tab PO SCH (21:00)
[2024-10-16 03:56] VITALS: BP 141/76
--- NOTE | 2024-10-16 04:59 | NUR ---
SHIFT SUMMARY PT ADMITTED FOR ALTERED MENTAL STATE. PT IS ALERT AND ORIENTED TIMES 2.. PT IS FULL CODE, PT IS NPO AND HAVING SWALLOW EVAL IN THE AM TODAY. PT HAS SCD S IN PLACE. PT IS ON LR @110/HR. BED IN LOW POSITION, CALL LIGHT WITHIN REACH, RAILS TIMES 2.
--- NOTE | 2024-10-16 05:49 | NUR ---
LAB REPORT RESULT: GRAM POSITIVE COCCI IN CLUSTERS.
[2024-10-16 06:23] LABS: BASOPHILS ABSOLUTE AUTO 0.02 K/mm3 (0.00-0.23); BASOPHILS PERCENT AUTO 0 % (0-2); EOSINOPHILS ABSOLUTE AUTO 0.05 K/mm3 (0.00-0.68); EOSINOPHILS PERCENT AUTO 1 % (0-6); Hematocrit 37.9 % (37.0-53.0); Hemoglobin 12.2 g/dL (13.5-17.5); IMMATURE GRAN ABSOLUTE AUTO 0.02 K/mm3 (0.00-0.10); IMMATURE GRAN PERCENT AUTO 0 % (0-1); LYMPHOCYTES ABSOLUTE AUTO 1.23 K/mm3 (0.84-5.20); LYMPHOCYTES PERCENT AUTO 23 % (21-46); MONOCYTES ABSOLUTE AUTO 0.72 K/mm3 (0.16-1.47); MONOCYTES PERCENT AUTO 14 % (4-13); Mean Corpuscular HGB 29.4 pg (26.0-34.0); Mean Corpuscular HGB Conc 32.2 g/dL (31.5-36.5); Mean Corpuscular Volume 91 fL (80-100); Mean Platelet Volume 9.7 fL (9.1-12.4); NEUTROPHILS ABSOLUTE AUTO 3.31 K/mm3 (1.96-9.15); NEUTROPHILS PERCENT AUTO 62 % (41-73); Platelet Count 192 K/mm3 (150-400); RDW Coefficient Variation 14.3 % (11.7-14.2); RDW Standard Deviation 47.3 fL (35.1-46.3); Red Blood Cell Count 4.15 M/mm3 (4.30-5.90); White Blood Cell Count 5.35 K/mm3 (4.00-11.30)
[2024-10-16 06:54] LABS: Calcium, Blood 8.8 mg/dL (8.5-10.1); Creatinine, Blood 0.67 mg/dL (0.60-1.20); Magnesium, Blood 1.8 mg/dL (1.6-2.4); Potassium, Blood 3.8 mmol/L (3.5-5.5)
[2024-10-16 07:37] VITALS: BP 155/87
[2024-10-16] MEDS ORDERED: Lactulose 200 GM/300 ML Enema 300ML BTL PR ONE (07:45)
[2024-10-16] MEDS ORDERED: NS 250 ML IV PRN (08:35)
[2024-10-16] MEDS ORDERED: Aspirin 81 MG Chew PO SCH (09:00)
[2024-10-16] MEDS ORDERED: CefTRIAXone Sodium 1,000 MG in NS 100 ML IV SCH (09:00)
[2024-10-16] MEDS ORDERED: Ketorolac Tromethamine 15mg Vial IV PRN (11:05)
[2024-10-16 16:05] VITALS: BP 155/83
--- NOTE | 2024-10-16 18:08 | NUR ---
SHIFT SUMMARY PT MENTATION IMPROVING, NOW ORIENTED X3 W/ SOME FORGETFULNESS, VSS, BEDRIDDEN AT THIS TIME, AND PAIN MANAGED. PT HAD ST EVAL THIS SHIFT, CONT TO BE NPO W/ NON ORAL MEDS W/ THE EXCEPTION OF SMALL SIPS OF WATER. LACTULOSE ENEMA ORDERED, NOT GIVEN DUE TO PT ABILITY TO HAVE BM. BARRIUM SWALLOW PLANNED FOR MON. NO OTHER ACUTE CHANGES. CALL LIGHT WITHIN REACH.
[2024-10-16 19:12] VITALS: BP 164/84
[2024-10-17 04:00] VITALS: BP 139/84
--- NOTE | 2024-10-17 04:20 | NUR ---
PT A&O X3, DOES NOT KNOW WHAT CITY HE WAS IN. VS WNL, I&O WNL, PT WITH INCONTINENT BOWEL, BUT CONTINENT UOP. PT REMAINS ON IVF, IS NPO D/T ASPIRATION PERCAUTIONS, DUE TO HAVE BARIUM SWALLOW ON FRIDAY. CBG WNL, REMAINS ON IVABX. LIVES WITH DAUGHTER, UNSURE WHAT D/C PLAN IS AT THIS TIME.
[2024-10-17 07:48] VITALS: BP 169/78
--- NOTE | 2024-10-17 15:17 | NUR ---
1430: pt calling out from room. Checked on pt, pt pulled out IV, incontinent of stool. attempting to get out of bed. Brief changed, PT in room for eval. Pt refusing IV at this time. MARY Moore notified.
[2024-10-17 17:07] VITALS: BP 157/95
--- NOTE | 2024-10-17 17:37 | NUR ---
SHIFT SUMMARY PT MORE CONFUSED TODAY THAN YESTERDAY. PT ATTEMPTED TO GET OUT OF BED AND PULLED AT LINES. PT REFUSED NEW IV PLACEMENT. DAUGHTER MAIN VISITED AND EXPRESSED CONCERNS. THIS RN NOTIFIED . CALLED AND SPOKE W/ DAUGHTER. PT NOW ON MINCED AND MOIST DIET AND TOLERATING IT WELL. PT REQUIRES SUPERVISION W/ PO INTAKE DUE TO NON ADHERENCE TO PRECAUTIONS. NO OTHER ACUTE CHANGES. CALL LIGHT WITHIN REACH AND BED ALARM ON.
[2024-10-17 19:45] VITALS: BP 153/82
--- NOTE | 2024-10-18 01:50 | NUR ---
PT VERY CONFUSED OVER PAST 2-3 HRS. ATTEMPTED TO GET OOB MULTIPLE TIMES EVEN THOUGH HE CAN'T SIT UP INDEPENDENTLY. HAS BEEN YELLING OUT FOR DARLYN QUACH, KEEPS SAYING THAT WE ARE KIDNAPPING HIM, CAN NOT TELL THIS NURSE WHERE HE IS, AND DOESN'T REMEMBER THAT HE'S IN THE HOSPITAL. HE ALSO DOES NOT EVEN REMEMBER THAT IS NIGHT TIME EVEN WHEN WE SHOW HIM THE WINDOW AND THE DARK [place] OUTSIDE. WILL KEEP SAFE AT THIS TIME.
[2024-10-18 03:43] VITALS: BP 157/88
--- NOTE | 2024-10-18 04:21 | NUR ---
PT REMAINS CONFUSED, STILL DOES NOT REALIZE HE'S IN THE HOSPITAL, KEEPS CALLING OUT FOR MAIN AND DARLYN. PT VS WNL, CBG AT HS WAS 255 NO COVERAGE INDICATED. PT ATTEMTED TO GET OOB BY SWINGING LEGS OVER SIDE RAILS, BUT COULD NOT GET ANY FURTHER D/T LEFT HEMIPARESIS IN ARM. PT USED URINAL APPROPRIATELY UNTIL THIS AM WHEN HE JUST URINATED ON BED. MONITORED THROUGHOUT NIGHT FOR SAFETY.
[2024-10-18] MEDS ORDERED: Insulin Human Lispro 100 Units/ML 3ML Syringe SC SCH (07:30)
[2024-10-18 07:55] VITALS: BP 158/101
--- NOTE | 2024-10-18 14:38 | NUR ---
DR GARCIA SPOKE WITH DAUGHTER MAIN ABOUT PLAN FOR PATIENT. DAUGHTER OF PATIENT REPORTED THE PATIENT HAS CYCLES OF LUCIDITY THAT LAST FOR 2 WEEKS. HE WILL HAVE 2 GOOD WEEKS AND THEN 2 WEEKS OF CONFUSION AND DIFFICULTY WITH COMMUNICATION, SINCE ABOUT MARCH 2024. HE ALWAYS HAS TROUBLE WITH SWALLOWING WATER AT HOME AND OCCASIONALLY CHOKES. DAUGHTER REPORTED HE IS A GOOD EATER AT THIS BASELINE. DAUGHTER ALSO REPORTED OVER THE PAST 6-7 MONTHS THE PATIENT HAS EPISODES AT NIGHT OF THINKING OR DREAMING SOMEONE IS COMING TO KILL HIM AND WILL SCREAM FROM HIS ROOM. THE PATIENT CURRENTLY IS IN BED WITH CALL LIGHT IN HIS LAP, BED ALARM IS ON, SIDE RAILS UP X3.
--- NOTE | 2024-10-18 17:09 | NUR ---
CALLED PATIENTS DAUGHTER MAIN TO NOTIFY HER THAT PATIENT WAS MOVED FROM 340 TO 344 FOR THE PURPOSE OF A CLOSER SUPERVISION AT NIGHT WHEN HIS CONFUSION INCREASES. SHE STATED UNDERSTANDING AND HAD NO QUESTIONS.
--- NOTE | 2024-10-18 17:16 | NUR ---
SHIFT SUMMARY: PT ORIENTED X3 FOR ME THIS SHIFT. UNABLE TO STATE REASONING FOR ADMISSION TO HOSPITAL. PT HAS BEEN PLEASANT AND COOPERATIVE WITH CARE. SPOKE WITH DR. JAIME ABOUT POSSIBLY GETTING MEDICATION FOR NIGHTTIME IT WAS REPORTED PT HAD BEEN YELLING OUT AND MORE ANXIOUS DURING EVENING. SEROQUEL TO BE STARTED THIS EVENING. DAUGHTER IN THIS SHIFT. SPOKE WITH DR. GARCIA DAUGHTER HAD QUESTIONS. DR. GARCIA ARRIVED SHORTLY AFTER TO SPEAK WITH DAUGHTER. BARIUM SWALLOW COMPLETED THIS SHIFT. PT ON SOFT AND BITE SIZED DIET WITH HONEY THICKENED LIQUIDS SPOON FED. OKAY TO TAKE MEDICATIONS WHOLE ONE AT A TIME WITH APPLESAUCE. PT MOVED TO ROOM 344 AT APPROX 1700. CALL LIGHT IN REACH. BED IN LOWEST POSITION. REPORT GIVEN TO MARY BLAS.
[2024-10-18 17:18] VITALS: BP 149/89
[2024-10-18 19:37] VITALS: BP 164/88
[2024-10-18] MEDS ORDERED: QUEtiapine Fumarate 50 MG TAB PO SCH (21:00)
[2024-10-18] MEDS ORDERED: Miconazole Nitrate 2% 85 GM PWD TOP SCH (21:00)
--- NOTE | 2024-10-19 04:26 | NUR ---
SHIFT SUMMARY PT ALERT ORIENTED TO SELF AND PLACE WITH CONFUSION AND FORGETFULNESS. REQUIRES TOTAL CARE WITH REPOSITIONING AND ASSIST WITH FEEDING. C/O GENERALIZED PAIN MEDICATED WITH TYLENOL WITH GOOD PAIN RELIEF. ALSO WAS HAVING A HARD TIME SLEEPING MEDICATED WITH MELATONIN WITH GOOD RELIEF. HES BEEN SLEEPING ALL NIGHT. BP WAS ELEVATED AT START OF THE SHIFT AT 166/88. 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 FS DONE AC AND HS WAS 273 WITH NO COVERAGE NEEDED. HE WAS CONTINENT THIS SHIFT AND USED THE URINAL WITH ASSISTANCE. HE HAS NO IV AT THIS TIME AND IS ABLE TO TAKE ALL MEDS WHOLE IN APPLESAICE. REMAINS WITH HALLUCINATIONS AND SEES THINGS LIKE ANIMALS THAT HE SAYS ARE IN THE ROOM THAT ARENT REALLY THERE. HES RESTING IN BED AT THIS TIME WITH CALL LIGHT IN REACH
[2024-10-19 06:39] VITALS: BP 118/78
[2024-10-19 06:57] LABS: Bun/Creatinine Ratio 19.3 (12.0-20.0); Calcium, Blood 9.2 mg/dL (8.5-10.1); Creatinine, Blood 0.83 mg/dL (0.60-1.20); Potassium, Blood 3.4 mmol/L (3.5-5.5)
[2024-10-19 07:34] VITALS: BP 139/73
[2024-10-19] MEDS ORDERED: Potassium Chl 20MEQ/Water100ML 100 ML IV STA (07:48)
[2024-10-19] MEDS ORDERED: Potassium Chloride 20 MEQ TabCR PO ONE (09:00)
[2024-10-19 16:22] VITALS: BP 134/71
--- NOTE | 2024-10-19 18:47 | NUR ---
PATIENT SLEPT ALL DAY . OT WORKED WITH PT. SEROQUAL DECREASED.
[2024-10-19 20:31] VITALS: BP 147/67
[2024-10-19] MEDS ORDERED: QUEtiapine Fumarate 25 MG Tab PO SCH (21:00)
[2024-10-20 03:20] VITALS: BP 111/63
--- NOTE | 2024-10-20 06:29 | NUR ---
SHIFT SUMMARY PT ALERT ORIENTED TO SELF AND PLACE UNSURE OF WHAT MONTH IT IS AND VERY FORGETFUL. VSS ON RA SATTING AT 96%. FS DONE AC AND HS WAS 223. HE HAS LT SIDED DEFECIT DUE TO A OLD CVA. C/O GENERAL PAIN MEDICATED WITH TYLENOL WITH GOOD PAIN RELIEF. INC OF URINE THIS SHIFT. NO CHANGES THIS SHIFT SLEPT MOST OF THE NIGHT. RESTING IN BED AT THIS TIME WITH CALL LIGHT IN REACH
[2024-10-20 06:56] LABS: Bun/Creatinine Ratio 17.8 (12.0-20.0); Calcium, Blood 8.8 mg/dL (8.5-10.1); Creatinine, Blood 0.95 mg/dL (0.60-1.20); Potassium, Blood 3.8 mmol/L (3.5-5.5)
[2024-10-20 07:08] VITALS: BP 141/63
[2024-10-20] MEDS ORDERED: Lactulose 20 GM/30 ML UDC PO ONE (08:15)
[2024-10-20] MEDS ORDERED: MIRALAX17 GM PO (11:40)
[2024-10-20] MEDS ORDERED: SENN187 PO (11:41)
[2024-10-20] MEDS ORDERED: QUET25 PO (11:41)
--- NOTE | 2024-10-20 13:11 | NUR ---
DISCHARGE NOTE PATIENT A/OX3, ABLE TO MAKE NEEDS KNOWN. PLEASANT AND COOPERATIVE WITH CARE, CONFUSED INTERMITTENTLY BUT EASY TO REORIENT. ONE TIME ORDER RECIEVED FOR LACTULOSE ADMINISTERED PER JUL. Q 2H REPOSITIONING. PATIENT'S DAUGHTER NOTIFIED OF DISCHARGE ORDER AND PATIENT ADN FAMILY BOTH AGREEABLE TO PLAN TO DISCHARGE WITH HOME HEALTH. SON-IN-LAW CAME TO BEDSIDE TO PICK PATIENT UP AND WAS INFORMED OF DIET CHANGES, FOLLOW UP APPOINTMENTS AND NEW MEDICATION. NEW MED[facility]S [facility] TO [facility]. NO IV IN PLACE. PATIENT DRESSED AND ASSISTED TO WHEELCHAIR WITH 1 PERSON ASSIST AND WHEELED TO FAMILY VEHICLE BY [facility] STAFF. NO OTHER CONCERNS.
[2024-10-25] MEDS ORDERED: Clopidogrel Bis75 MG PO (11:00)
[2024-10-25] MEDS ORDERED: FAMO20 PO (11:01)
== END 2024-10-20 13:05 | disposition home health service (06) | DRG 388 ==
LOC: ER 00:46 → MEDS 00:47 → ENPENDDIS 10-20 12:57 → MEDS 10-20 13:05
PROVIDERS: Student in an Organized Health Care Education/Training Program; ADMIT Internal Medicine
DX: K56.41 Fecal impaction (principal); G92.8 Other toxic encephalopathy; B37.49 Other urogenital candidiasis; N30.00 Acute cystitis without hematuria; F11.20 Opioid dependence, uncomplicated; E11.9 Type 2 diabetes mellitus without complications; I10 Essential (primary) hypertension; G89.29 Other chronic pain; E83.42 Hypomagnesemia; R13.10 Dysphagia, unspecified; E87.6 Hypokalemia; G47.00 Insomnia, unspecified; F32.A Depression, unspecified; I48.0 Paroxysmal atrial fibrillation; E78.5 Hyperlipidemia, unspecified; Z87.891 Personal history of nicotine dependence; Z98.890 Other specified postprocedural states; Z90.79 Acquired absence of other genital organ(s); Z85.46 Personal history of malignant neoplasm of prostate; Z79.899 Other long term (current) drug therapy; Z79.01 Long term (current) use of anticoagulants; I69.334 Monoplegia of upper limb following cerebral infarction affecting left non-dominant side
CPT/HCPCS: 0241U; 36415; 70450; 74177; 74230; 80048; 80053; 81001; 82947; 83036; 83605; 83690; 83735; 85025; 87040; 87086; 87106; 92526; 92610; 92611; 93005; 93010; 96365-59; 96366; 96368; 96372; 96376; 97110; 97161; 97166; 97530; 99285-25; A9270; G0378; J0696; J1650; J1885; J3475; J7030; J7050; J7120; Q9967

== ENCOUNTER 2024-11-01 11:40 | Emergency (ER) | payer OTHER ==
[~2024-11-01] VITALS: Ht 180.3 cm; Wt 63.0 kg
[2024-11-01 11:40] VITALS: BP 161/110
[~2024-11-01 11:40] MED LIST changes: +Clopidogrel Bis75 MG PO; +FAMO20 PO; +QUET25 PO; +SENN187 PO
[2024-11-01] MEDS ORDERED: FentaNYL Citrate 50 MCG/ML 2 ML Injection IV ONE (11:50)
[2024-11-01 12:16] LABS: BASOPHILS ABSOLUTE AUTO 0.04 K/mm3 (0.00-0.23); BASOPHILS PERCENT AUTO 0 % (0-2); EOSINOPHILS ABSOLUTE AUTO 0.01 K/mm3 (0.00-0.68); EOSINOPHILS PERCENT AUTO 0 % (0-6); Hematocrit 37.2 % (37.0-53.0); Hemoglobin 12.3 g/dL (13.5-17.5); IMMATURE GRAN PERCENT AUTO 1 % (0-1); LYMPHOCYTES ABSOLUTE AUTO 1.27 K/mm3 (0.84-5.20); LYMPHOCYTES PERCENT AUTO 8 % (21-46); MONOCYTES ABSOLUTE AUTO 0.93 K/mm3 (0.16-1.47); MONOCYTES PERCENT AUTO 6 % (4-13); Mean Corpuscular HGB 29.5 pg (26.0-34.0); Mean Corpuscular HGB Conc 33.1 g/dL (31.5-36.5); Mean Corpuscular Volume 89 fL (80-100); Mean Platelet Volume 9.3 fL (9.1-12.4); NEUTROPHILS ABSOLUTE AUTO 13.77 K/mm3 (1.96-9.15); NEUTROPHILS PERCENT AUTO 85 % (41-73); Platelet Count 353 K/mm3 (150-400); RDW Coefficient Variation 14.6 % (11.7-14.2); RDW Standard Deviation 47.1 fL (35.1-46.3); Red Blood Cell Count 4.17 M/mm3 (4.30-5.90); White Blood Cell Count 16.12 K/mm3 (4.00-11.30)
[2024-11-01 12:27] LABS: International Normalized Ratio 1.07; Prothrombin Time Results 11.7 Sec (9.7-11.5)
[2024-11-01] MEDS ORDERED: levETIRAcetam 1,000 MG in NS 100 ML IV ONE (12:40)
[2024-11-01] MEDS ORDERED: DESMOPRESSIN ACETATE IV ONE ×2 (12:40→12:50)
[2024-11-01] MEDS ORDERED: NS IV ONE ×2 (12:40→12:50)
[2024-11-01] MEDS ORDERED: CARVEDILOL3.125 MG PO (12:42)
[2024-11-01] MEDS ORDERED: TIZANIDINE HCL213 PO (12:43)
[2024-11-01] MEDS ORDERED: NiCARdipine HCL 50 MG in NS 250 ML IV SCH (12:45)
[2024-11-01 12:46] LABS: Alanine Aminotransfer (ALT/SGP 16 U/L (12-78); Albumin, Blood 3.2 g/dL (3.4-5.0); Albumin/Globulin Ratio 0.8 (0.8-1.8); Alk Phos 115 U/L (50-136); Anion Gap 8 mmol/L (3-11); Aspartate Aminotrans (AST/SGOT 11 U/L (12-37); Bilirubin, Total 0.3 mg/dL (0.1-1.0); Blood Urea Nitrogen 15 mg/dL (8-24); Bun/Creatinine Ratio 19.7 (12.0-20.0); CO2, Blood 27 mmol/L (21-32); Chloride, Blood 104 mmol/L (98-108); Creatinine, Blood 0.76 mg/dL (0.60-1.20); Ethanol (Alcohol), Blood, Med <3 mg/dL; Globulin, Blood 4.1 g/dL (2.2-4.0); Glomerular Filtration Rate 96 (60-); Glucose, Blood 286 mg/dL (70-99); Potassium, Blood 4.3 mmol/L (3.5-5.5); Sodium, Blood 135 mmol/L (136-145); Total Protein, Blood 7.3 g/dL (6.4-8.2)
[2024-11-01] MEDS ORDERED: NS 1,000 ML IV ONE (13:39)
== END 2024-11-01 13:56 | disposition short-term general hospital (02) ==
LOC: ER 11:40
PROVIDERS: Emergency Medicine
DX: S06.30AA Unspecified focal traumatic brain injury with loss of consciousness status unknown, initial encounter (principal); S81.819A Laceration without foreign body, unspecified lower leg, initial encounter; S41.119A Laceration without foreign body of unspecified upper arm, initial encounter; S05.12XA Contusion of eyeball and orbital tissues, left eye, initial encounter; E78.5 Hyperlipidemia, unspecified; E11.9 Type 2 diabetes mellitus without complications; I10 Essential (primary) hypertension; W19.XXXA Unspecified fall, initial encounter; Z86.73 Personal history of transient ischemic attack (TIA), and cerebral infarction without residual deficits; Z87.891 Personal history of nicotine dependence; Z79.02 Long term (current) use of antithrombotics/antiplatelets; Z79.899 Other long term (current) drug therapy; Z79.84 Long term (current) use of oral hypoglycemic drugs; Z79.82 Long term (current) use of aspirin
CPT/HCPCS: 70450; 72125; 80053; 80320; 82550; 85025; 85610; 96365; 96368; 96375; 99285-25; J1953; J2597; J3010; J7030; J7050